=== PATIENT | male | born 1955 | race Caucasian/White ===

== ENCOUNTER 2018-03-11 08:57 | Emergency (ER) | payer OTHER ==
[2018-03-11 09:11] VITALS: BP 157/84
--- NOTE | 2018-03-11 09:18 | UC ---
UC General HPI - HPI Summary HPI Summary: runny nose, post nasal drip and cough with chest congestion since last pm. clear sputum. no fever, sob, cp or wheezing. no hx asthma. takes immune suppressants for arthritis. - History of Current Complaint Chief Complaint: UCRespiratory Stated Complaint: CONGESTION,COUGH Time Seen by Provider: 03/11/18 09:11 Hx Obtained From: Patient Onset/Duration: Gradual Onset Timing: Constant Pain Intensity: 0 Associated Signs & Symptoms: Positive: Cough. Negative: Chest Pain, Fever, SOB , Wheezing - Allergy/Home Medications Allergies/Adverse Reactions: Allergies Allergy/AdvReac Type Severity Reaction Status Date / Time No Known Allergies Allergy Verified 03/11/18 09:10 PMH/Surg Hx/FS Hx/Imm Hx - Additional Past Medical History Additional PMH: Psoriatic arthritis Cardiovascular History: Hypertension - Surgical History Surgical History: Yes Surgery Procedure, Year, and Place: cardiac catheter. tonsilectomy - Social History Alcohol Use: Occasionally Substance Use Type: None Smoking Status (MU): Former Smoker Type: Cigars Amount Used/How Often: none in 1 year Review of Systems All Other Systems Reviewed And Are Negative: Yes Constitutional: Positive: Negative Skin: Positive: Negative Eyes: Positive: Negative ENT: Positive: Nasal Discharge Respiratory: Positive: Cough Cardiovascular: Positive: Negative Gastrointestinal: Positive: Negative Genitourinary: Positive: Negative Motor: Positive: Negative Neurovascular: Positive: Negative Musculoskeletal: Positive: Negative Neurological: Positive: Negative Psychological: Positive: Negative Physical Exam Triage Information Reviewed: Yes Appearance: Well-Appearing Vital Signs: Initial Vital Signs Temp 97.8 F 03/11/18 09:07 Pulse 74 03/11/18 09:07 Resp 17 03/11/18 09:07 BP 157/84 03/11/18 09:07 Pulse Ox 99 03/11/18 09:07 Eyes: Positive: Conjunctiva Clear ENT: Positive: Pharynx normal, Nasal congestion, TMs normal. Negative: Nasal drainage, Sinus tenderness Neck: Positive: Supple, Nontender, No Lymphadenopathy Respiratory: Positive: Lungs clear, Normal breath sounds, No respiratory distress, Other: - Cough is congested Cardiovascular: Positive: RRR, No Murmur Abdomen Description: Positive: Nontender, No Organomegaly, Soft Bowel Sounds: Positive: Present Musculoskeletal: Positive: ROM Intact Neurological: Positive: Alert Psychological: Positive: Age Appropriate Behavior Skin Exam: Normal Course/Dx - Course Course Of Treatment: pt on chronic immune suppression and requires early intervetion with antibiotics thus will tx with zpak. - Differential Dx - Multi-Symptom Differential Diagnoses: Other - uri, sinusitis, bronchitis, pneumonia - Diagnoses Provider Diagnosis: URI (upper respiratory infection), Bronchitis Discharge - Sign-Out/Discharge Documenting (check all that apply): Patient Departure All imaging exams completed and their final reports reviewed: No Studies - Discharge Plan Condition: Stable Disposition: HOME Prescriptions: Azithromycin TAB* [Zithromax TAB (Z-ANGELLA) 250 mg #6 tabs] 2 tab PO .TODAY, THEN 1 DAILY #1 angella Patient Education Materials: Upper Respiratory Infection (DC), Acute Bronchitis (ED) Referrals: Alannah Wilson MD [Primary Care Provider] - 7 Days - Billing Disposition and Condition Condition: STABLE Disposition: Home
== END 2018-03-11 09:25 | disposition home or self-care (01) ==
LOC: UCCORT 08:57
DX: J06.9 Acute upper respiratory infection, unspecified (principal); J40 Bronchitis, not specified as acute or chronic; I10 Essential (primary) hypertension; Z87.891 Personal history of nicotine dependence
CPT/HCPCS: 99212; G0463

== ENCOUNTER 2018-12-25 19:08 | Emergency (ER) | payer OTHER ==
--- OUTSIDE RECORDS SUMMARY | 2018-12-25 19:42 | XMS REPORT | Continuity of Care Document ---
:1955 External Reference #:[id number] Author Name Kadeem Lynn N.P. 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 Onset: 05/26/2011 Rheumatoid arthritis Alannah Wilson M.D. Onset: 05/26/2011 Psoriasis Alannah Wilson M.D. Onset: 05/26/2011 Mixed hyperlipidemia Alannah Wilson M.D. Onset: 05/26/2011 Benign essential hypertension Alannah Wilson M.D. Onset: 05/26/2011 Osteoarthritis Alannah Wilson M.D. Onset: 05/26/2011 Malaise and fatigue Alannah Wilson M.D. Onset: 05/26/2011 Allergic rhinitis Alannah Wilson M.D. Onset: 05/24/2012 Hearing loss Alannah Wilson M.D. Onset: 05/24/2012 Dysfunction of eustachian tube Alannah Wilson M.D. Onset: 05/24/2012 Degeneration of lumbar intervertebral disc Alannah Wilson M.D. Onset: 04/02 Degeneration of thoracic intervertebral disc Alannah Wilson M.D. Onset: Psoriasis with arthropathy Lizzy Harrison FNP Onset: 10/28/2013 Spinal stenosis Lizzy Harrison FNP Onset: 10/28/2013 Basal cell carcinoma of skin Lizzy Harrison FNP Onset: 12/17/2013 Note: FOLLOWED [facility] [place] Essential hypertension Alannah Wilson M.D. 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 Onset: 01/15/2015 Degeneration of lumbosacral intervertebral Alannah Wilson M.D. Onset: 01/15 disc Other specified hearing loss, bilateral Alannah Wilson M.D. Onset: 2014 Other specified disorders of Eustachian tube, Alannah Wilson M.D. Onset: bilateral Social History Type Date Description Comments Sex Unknown ETOH Use Occasionally consumes alcohol Tobacco Use Start: Unknown Patient has never smoked Allergies, Adverse Reactions, Alerts Active Allergies Reaction Severity Comments Date NKDA 05/26/2011 Environmental 02/09/2012 Seasonal 02/09/2012 Medications Active Medications SIG Qnty Indications Ordering Date Provider Ciprofloxacin HCL 1 tab by mouth 20tabs R30.0 Alannah Wilson, 10/29/2018 500mg twice a day M.D. Tablets Womens Daily 1 by mouth every 90tabs E55.9 Alannah Wilson, 09/06/2018 Formula/Folic day M.D. Acid/Calcium/Iron Tablets Toprol XL 1 by mouth every 90tabs I10 Alannah Wilson, 04/24/2018 25mg Tablets ER day M.D. 24HR Clobetasol Propionate apply to affected 60gm L40.9 Alannah Wilson, 2014 arae twice a day M.D. 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 Capsules prescribed by Dr Cox in Rheumatology M51.35 M51.37 Fluticasone 1 spray to each 3Bottles J30.2 Steve, Jose Aamber Marcum, 11/13/2012 Propionate nostril every day M.DAlonzo 50mcg/Act Suspension Desonide Apply Twice Aday To L40.9 Steve Phyllischristine Marcum, 05/24/2012 0.05% Cream Eyelids M.Ye Enbrel every week prescribed L40.9 Steve Phyllischristine Marcum, 06/27/2011 25mg Kit by Rheumatology MMiley M05.40 History Medications Doxycycline Hyclate 1 tab by mouth 60tabs S30.861A [facility] - twice a [facility] M., M.DAlonzo 07/23/2018 100mg Tablets Doxycycline Hyclate 1 tab by mouth S30.861A Steve, [facility] 07/23/2018 - twice a day M., M.D. 07/22/2018 100mg Tablets Doxycycline Hyclate 1 tab by mouth 60tabs S30.861A Steve, [facility] 2018 - twice a day M., M.D. 07/23/2018 100mg Tablets Doxycycline 1 cap by mouth 60caps S30.861A [facility] 07/23/2018 - Monohydrate twice a day M., M.DAlonzo 08/23/2018 100mg Capsules A69.20 Immunizations CPT Code Status Date Vaccine Lot # [id number] Given 04/30/2018 TDaP 74915 Given 01/26/2017 Flu Vaccine [id number] 21977 Given 01/13/2015 Flu Vaccine 55636 Given 12/30/2013 Flu Vaccine [id number] 38974 Given 12/17/2012 Flu Vaccine [id number] 77438 Given 02/17/2011 Flu Vaccine 76172 Given 12/10/2009 Flu Vaccine 93116 Given 01/13/2009 Flu Vaccine 69731 Given 01/03/2008 Flu Vaccine 02588 Given 04/24/2007 Td Preservative Free, 7 Years And Older 55674 Given 02/06/2007 Flu Vaccine 81806 Given 04/16/1998 DT Pediatric Vital Signs Date Vital Result Comment 10/29/2018 4:27pm BP Systolic 138 mmHg BP Diastolic 88 mmHg Height 71 inches 5'11" Weight 228.00 lb BMI (Body Mass Index) 31.8 kg/m2 Heart Rate 64 /min Respiratory Rate 18 /min 09/06/2018 4:16pm BP Systolic 128 mmHg BP Diastolic 76 mmHg Height 71 inches 5'11" Weight 234.00 lb BMI (Body Mass Index) 32.6 kg/m2 Heart Rate 65 /min Respiratory Rate 18 /min Results Test Date Facility Test Result H/L Range Note CBC With Diff 08/23/2018 [facility] WBC 4.4 10*3/uL (4.1-11.0) [address] (607)- - RBC 4.95 10*6/uL (4.60-6.10) HGB 14.9 g/dL (13.5-18.0) HCT 44.6 % (41.0-53.0) MCV 90.1 fL (80.0-95.0) MCH 30.1 pg (27.0-32.0) MCHC 33.4 g/dL (32.0-36.0) RDW 14.4 % (10.5-14.5) PLT 152 10*3/uL (150-450) MPV 8.7 fL (7.1-10.7) Neut % 47.5 % (35.0-75.0) Lymph % 36.4 % (16.0-52.0) [place] % 11.0 % High (0.0-8.0) Eos % 4.2 % (0.0-5.0) Baso % 0.9 % (0.0-4.0) Neut # 2.1 10*3/uL (1.8-7.7) Lymph # 1.6 10*3/uL (1.2-4.8) [place] # 0.5 10*3/uL (0.0-0.8) Eos # 0.2 10*3/uL (0.0-0.5) Baso # 0.0 10*3/uL (0.0-0.2) CMP 08/23/2018 [facility] Sodium 142 mmol/L (136-145) [address] (607)- - Potassium 4.2 mmol/L (3.6-5.2) Chloride 109 mmol/L High (100-108) Co2 29 mmol/L (22-31) Anion Gap 4 mmol/L Low (7-16) Urea Nitrogen 22 mg/dL (7-24) Creatinine 0.98 mg/dL (0.80-1.30) BUN/Creat Ratio 22.4 RATIO High (10.0-20.0) Glucose 86 mg/dL (70-99) Calcium 8.6 mg/dL (8.4-10.2) Total Protein 7.0 g/dL (6.4-8.2) Albumin 4.1 g/dL (3.2-4.5) Globulin 2.9 g/dL (2.7-4.3) Alb/Glob Ratio 1.4 RATIO Alkaline Phosphatase 42 U/L Low (45-117) Bilirubin,Total 1.2 mg/dL High (0.0-1.0) Ast (Sgot) 24 U/L (11-39) Alt (SGPT) 29 U/L (12-78) GFR >60 ml/min/1.73m2 (>59) GFR ( Amer) >60 ml/min/1.73m2 (>59) GFR Interpretation <SEE NOTE> 1 Lipid Extended Panel 08/23/2018 [facility] Appearance CLEAR (Clear) [address] (496)- - Cholesterol @ 211 mg/dL High (0-200) Triglyceride @ 188 mg/dL (30-200) HDL Cholesterol @ 42 mg/dL (>40) 2 Chol/HDL Ratio 5.0 RATIO 3 Direct LDL @ 130 mg/dL High (<130) 4 VLDL (Calc) 39 mg/dL High (0-30) Laboratory 08/23/2018 [facility] TSH,Ultrasensitive @ 1.330 (0.360- 4.170) test finding [address] mIU/L (607)- - Esr 7 mm/h (0-20) 25 Hydroxy Vit D @ 21 ng/mL Low (31-100) 5 Lyme Disease 08/23/2018 [facility] Lyme Igm/Igg AB NEGATIVE (Neg) 6 Antibodies Igg/Igm [address] @ (335)- - 1 NORMAL KIDNEY FUNCTION OR MILD DISEASE - GFR >OR= 60 CHRONIC KIDNEY DISEASE - GFR 15 - 59 RENAL FAILURE - GFR <15 Est. GFR calculation based on the MDRD study equation, which assumes a steady state for creatinine. Est. GFR should not be used for medication dosing. 2 PER NCEP ATP III GUIDELINES: RESULTS LOWER THAN 40 MG/DL ARE SUGGESTIVE OF INCREASED RISK FOR CORONARY ARTERY DISEASE. RESULTS > OR = TO 60 MG/DL ARE CONSIDERED A NEGATIVE RISK FACTOR. 3 INTERPRETATION OF CHOL-HDL RATIO CHD RISK FEMALE MALE VERY HIGH >8.3 >14.3 HIGH 5.6- 8.3 6.7- 14.3 AVERAGE 3.7- 5.6 4.0- 6.7 BELOW AVERAGE 2.5- 3.7 2.7- 4.0 PROTECTED <2.5 <2.7 4 PER NCEP ATP III GUIDELINES: OPTIMAL < 100 NEAR OPTIMAL 100 - 129 BORDERLINE HIGH 130 - 159 HIGH 160 - 189 VERY HIGH > 189 5 A REVIEW OF THE LITERATURE SUGGESTS THE FOLLOWING RANGES FOR THE CLASSIFICATION OF 25-OH VITAMIN D STATUS: VITAMIN D STATUS 25-OH VITAMIN D DEFICIENCY <20 NG/ML INSUFFICIENCY 20-30 NG/ML SUFFICIENCY 31 - 100 NG/ML TOXICITY > 100 NG/ML A PEDIATRIC REFERENCE RANGE HAS NOT BEEN ESTABLISHED USING THIS METHOD. 6 A Negative serologic test for Lyme Disease indicates no serologic evidence of infection with B burgdorferi at the time this specimen was collected. A repeat specimen should be collected in 2 to 4 weeks if clinically indicated. Procedures Date Code Description Status 09/06/2018 26855 Visual Screening Test Completed 09/06/2018 84425 EKG Completed 09/06/2018 01351 Audiometry, [place], Screening Completed 07/27/2016 [id number] Colonoscopy Completed 03/13/2005 69000400 Colonoscopy Completed Medical Devices Description No Information Available Encounters Type Date Location Provider Dx Diagnosis Office Visit 10/29/2018 [facility] Kadeem Lynn, I10 Essential ( primary) 4:30p N.P. hypertension E78.2 Mixed hyperlipidemia M05.40 Rheumatoid myopathy with rheumatoid arthritis of [facility] site M51.37 Other intervertebral disc degeneration, lumbosacral region M51.35 Other intervertebral disc degeneration, thoracolumbar region M15.9 Polyosteoarthritis, unspecified L40.9 Psoriasis, unspecified R53.81 Other malaise H91.8x3 Other specified hearing loss, bilateral H69.83 Other specified disorders of Eustachian tube, bilateral F41.9 Anxiety disorder, unspecified J30.2 Other seasonal allergic rhinitis L20.9 Atopic dermatitis, unspecified N40.1 Benign prostatic hyperplasia with lower urinary tract symp I45.10 Unspecified right bundle-branch block H92.02 Otalgia, left ear E55.9 Vitamin D deficiency, unspecified R05 Cough S30.861D Insect bite (nonvenomous) of abdominal wall, subs encntr A69.20 Lyme disease, unspecified M54.5 Low back pain R30.0 Dysuria N21.8 Other lower urinary tract calculus Office Visit 09/06/2018 4:15p [facility] Alannah Wilson ( primary) Chuck Marcum hypertension E78.2 Mixed hyperlipidemia M05.40 Rheumatoid myopathy with rheumatoid arthritis of [facility] site M51.37 Other intervertebral disc degeneration, lumbosacral region M51.35 Other intervertebral disc degeneration, thoracolumbar region M15.9 Polyosteoarthritis, unspecified L40.9 Psoriasis, unspecified R53.81 Other malaise H91.8x3 Other specified hearing loss, bilateral H69.83 Other specified disorders of Eustachian tube, bilateral F41.9 Anxiety disorder, unspecified J30.2 Other seasonal allergic rhinitis L20.9 Atopic dermatitis, unspecified N40.1 Benign prostatic hyperplasia with lower urinary tract symp I45.10 Unspecified right bundle-branch block H92.02 Otalgia, left ear E55.9 Vitamin D deficiency, unspecified R05 Cough S30.861D Insect bite (nonvenomous) of abdominal wall, subs encntr A69.20 Lyme disease, unspecified Z00.01 Encounter for general adult medical exam w abnormal findings Office Visit 08/23/2018 8:30a [facility] Alannah Wilson I10 Essential ( primary) Chuck Marcum hypertension E78.2 Mixed hyperlipidemia M05.40 Rheumatoid myopathy with rheumatoid arthritis of [facility] site M51.37 Other intervertebral disc degeneration, lumbosacral region M51.35 Other intervertebral disc degeneration, thoracolumbar region M15.9 Polyosteoarthritis, unspecified L40.9 Psoriasis, unspecified R53.81 Other malaise H91.8x3 Other specified hearing loss, bilateral H69.83 Other specified disorders of Eustachian tube, bilateral F41.9 Anxiety disorder, unspecified J30.2 Other seasonal allergic rhinitis L20.9 Atopic dermatitis, unspecified N40.1 Benign prostatic hyperplasia with lower urinary tract symp I45.10 Unspecified right bundle-branch block H92.02 Otalgia, left ear E55.9 Vitamin D deficiency, unspecified R05 Cough S30.861D Insect bite (nonvenomous) of abdominal wall, subs encntr A69.20 Lyme disease, unspecified Office Visit 07/23/2018 3:00p [facility] Kadeem Lynn I10 Essential (primary) N.P. hypertension E78.2 Mixed hyperlipidemia M05.40 [facility]37 Other intervertebral disc degeneration, lumbosacral region M51.35 Other intervertebral disc degeneration, thoracolumbar region M15.9 Polyosteoarthritis, unspecified L40.9 Psoriasis, unspecified R53.81 Other malaise H91.8x3 Other specified hearing loss, bilateral H69.83 Other specified disorders of Eustachian tube, bilateral F41.9 Anxiety disorder, unspecified J30.2 Other seasonal allergic rhinitis L20.9 Atopic dermatitis, unspecified N40.1 Benign prostatic hyperplasia with lower urinary tract symp I45.10 Unspecified right bundle-branch block H92.02 Otalgia, left ear E55.9 Vitamin D deficiency, unspecified R05 Cough S30.861A Insect bite (nonvenomous) of abdominal wall, init encntr Office Visit 05/22/2018 4:00p [facility] Alannah Wilson I10 Essential ( primary) Chuck Marcum hypertension E78.2 Mixed hyperlipidemia M05.40 Rheumatoid myopathy with rheumatoid arthritis of unsp site M51.37 Other intervertebral disc degeneration, lumbosacral region M51.35 Other intervertebral disc degeneration, thoracolumbar region M15.9 Polyosteoarthritis, unspecified L40.9 Psoriasis, unspecified R53.81 Other malaise H91.8x3 Other specified hearing loss, bilateral H69.83 Other specified disorders of Eustachian tube, bilateral F41.9 Anxiety disorder, unspecified J30.2 Other seasonal allergic rhinitis L20.9 Atopic dermatitis, unspecified N40.1 Benign prostatic hyperplasia with lower urinary tract symp I45.10 Unspecified right bundle-branch block H92.02 Otalgia, left ear E55.9 Vitamin D deficiency, unspecified R05 Cough Assessments Date Code Description Provider 10/29/2018 I10 Essential (primary) hypertension Kadeem Lynn, N.P. 10/29/2018 E78.2 Mixed hyperlipidemia Kadeem Lynn, N.P. 10/29/2018 M05.40 Rheumatoid myopathy with rheumatoid Kadeem Lynn, N.P. arthritis of unspecified 10/29/2018 M51.37 Other intervertebral disc degeneration, Kadeem Lynn, N.P. lumbosacral region 10/29/2018 M51.35 Other intervertebral disc degeneration, Kadeem Lynn, N.P. thoracolumbar region 10/29/2018 M15.9 Polyosteoarthritis, unspecified Kadeem Lynn, N.P. 10/29/2018 L40.9 Psoriasis, unspecified Kadeem Lynn, N.P. 10/29/2018 R53.81 Other malaise Kadeem Lynn, N.P. 10/29/2018 H91.8x3 Other specified hearing loss, bilateral Kadeem Lynn, N.P. 10/29/2018 H69.83 Other specified disorders of Eustachian Kadeem Lynn, N.P. tube, bilateral 10/29/2018 F41.9 Anxiety disorder, unspecified Kadeem Lynn, N.P. 10/29/2018 J30.2 Other seasonal allergic rhinitis Kadeem Lynn, N.P. 10/29/2018 L20.9 Atopic dermatitis, unspecified Kadeem Lynn, N.P. 10/29/2018 N40.1 Benign prostatic hyperplasia with lower Kadeem Lynn, N.P. urinary tract sympto 10/29/2018 I45.10 Unspecified right bundle-branch block Kadeem Lynn, N.P. 10/29/2018 H92.02 Otalgia, left ear Kadeem Lynn, N.P. 10/29/2018 E55.9 Vitamin D deficiency, unspecified Kadeem Lynn, N.P. 10/29/2018 R05 Cough Kadeem Lynn, N.P. 10/29/2018 S30.861D Insect bite (nonvenomous) of abdominal Kadeem Lynn N.P. wall, subsequent enco 10/29/2018 A69.20 Lyme disease, unspecified Kadeem Lynn N.P. 10/29/2018 M54.5 Low back pain Kadeem Lynn N.P. 10/29/2018 R30.0 Dysuria Kadeem Lynn N.P. 10/29/2018 N21.8 Other lower urinary tract calculus Kadeem Lynn, N.P. 09/06/2018 I10 Essential (primary) hypertension Alannah Wilson M.D. 09/06/2018 E78.2 Mixed hyperlipidemia Alannah Wilson M.D. 09/06/2018 M05.40 Rheumatoid myopathy with rheumatoid Alannah Wilson M.D. arthritis of unspecified 09/06/2018 M51.37 Other intervertebral disc degeneration, Alannah Wilson M.D. lumbosacral region 09/06/2018 M51.35 Other intervertebral disc degeneration, Alannah Wilson M.D. thoracolumbar region 09/06/2018 M15.9 Polyosteoarthritis, unspecified Alannah Wilson M.D. 09/06/2018 L40.9 Psoriasis, unspecified Alannah Wilson M.D. 09/06/2018 R53.81 Other malaise Alannah Wilson M.D. 09/06/2018 H91.8x3 Other specified hearing loss, bilateral Alannah Wilson M.D. 09/06/2018 H69.83 Other specified disorders of Eustachian Alannah Wilson M.D. tube, bilateral 09/06/2018 F41.9 Anxiety disorder, unspecified Alannah Wilson M.D. 09/06/2018 J30.2 Other seasonal allergic rhinitis Alannah Wilson M.D. 09/06/2018 L20.9 Atopic dermatitis, unspecified Alannah Wilson M.D. 09/06/2018 N40.1 Benign prostatic hyperplasia with lower Alannah Wilson M.D. urinary tract sympto 09/06/2018 I45.10 Unspecified right bundle-branch block Alannah Wilson M.D. 09/06/2018 H92.02 Otalgia, left ear Alannah Wilson M.D. 09/06/2018 E55.9 Vitamin D deficiency, unspecified Alannah Wilson M.D. 09/06/2018 R05 Cough Alannah Wilson M.D. 09/06/2018 S30.861D Insect bite (nonvenomous) of abdominal Alannah Wilson M.D. wall, subsequent enco 09/06/2018 A69.20 Lyme disease, unspecified Alannah Wilson M.D. 09/06/2018 Z00.01 Encounter for general adult medical Alannah Wilson M.D. examination with abnorma 08/23/2018 I10 Essential (primary) hypertension Alannah Wilson M.D. 08/23/2018 E78.2 Mixed hyperlipidemia Alannah Wilson M.D. 08/23/2018 M05.40 Rheumatoid myopathy with rheumatoid Alannah Wilson M.D. arthritis of unspecified 08/23/2018 M51.37 Other intervertebral disc degeneration, Alannah Wilson M.D. lumbosacral region 08/23/2018 M51.35 Other intervertebral disc degeneration, Alannah Wilson M.D. thoracolumbar region 08/23/2018 M15.9 Polyosteoarthritis, unspecified Alannah Wilson M.D. 08/23/2018 L40.9 Psoriasis, unspecified Alannah Wilson M.D. 08/23/2018 R53.81 Other malaise Alannah Wilson M.D. 08/23/2018 H91.8x3 Other specified hearing loss, bilateral Alannah Wilson M.D. 08/23/2018 H69.83 Other specified disorders of Eustachian Alannah Wilson M.D. tube, bilateral 08/23/2018 F41.9 Anxiety disorder, unspecified Alannah Wilson M.D. 08/23/2018 J30.2 Other seasonal allergic rhinitis Alannah Wilson M.D. 08/23/2018 L20.9 Atopic dermatitis, unspecified Alannah Wilson M.D. 08/23/2018 N40.1 Benign prostatic hyperplasia with lower Alannah Wilson M.D. urinary tract sympto 08/23/2018 I45.10 Unspecified right bundle-branch block Alannah Wilson M.D. 08/23/2018 H92.02 Otalgia, left ear Alannah Wilson M.D. 08/23/2018 E55.9 Vitamin D deficiency, unspecified Alannah Wilson M.D. 08/23/2018 R05 Cough Alannah Wilson M.D. 08/23/2018 S30.861D Insect bite (nonvenomous) of abdominal Alannah Wilson M.D. wall, subsequent enco 08/23/2018 A69.20 Lyme disease, unspecified Alannah Wilson M.D. 07/23/2018 I10 Essential (primary) hypertension Kadeem Lynn N.PAlonzo 07/23/2018 E78.2 Mixed hyperlipidemia Kadeem Lynn N.PAlonzo 07/23/2018 M05.40 Rheumatoid myopathy with rheumatoid Kadeem Lynn N.PAlonzo arthritis of unspecified 07/23/2018 M51.37 Other intervertebral disc degeneration, Kadeem Lynn N.P. lumbosacral region 07/23/2018 M51.35 Other intervertebral disc degeneration, Kadeem Lynn N.PAlonzo thoracolumbar region 07/23/2018 M15.9 Polyosteoarthritis, unspecified Kadeem Lynn N.PAlonzo 07/23/2018 L40.9 Psoriasis, unspecified Kadeem Lynn N.PAlonzo 07/23/2018 R53.81 Other malaise Kadeem Lynn, N.P. 07/23/2018 H91.8x3 Other specified hearing loss, bilateral Kadeem Lynn, N.P. 07/23/2018 H69.83 Other specified disorders of Eustachian Kadeem Lynn, N.P. tube, bilateral 07/23/2018 F41.9 Anxiety disorder, unspecified Kadeem Lynn, N.P. 07/23/2018 J30.2 Other seasonal allergic rhinitis Kadeem Lynn, N.P. 07/23/2018 L20.9 Atopic dermatitis, unspecified Kadeem Lynn, N.P. 07/23/2018 N40.1 Benign prostatic hyperplasia with lower Kadeem Lynn, N.P. urinary tract sympto 07/23/2018 I45.10 Unspecified right bundle-branch block Kadeem Lynn, N.P. 07/23/2018 H92.02 Otalgia, left ear Kadeem Lynn, N.P. 07/23/2018 E55.9 Vitamin D deficiency, unspecified Kadeem Lynn, N.P. 07/23/2018 R05 Cough Kadeem Lynn, N.P. 07/23/2018 S30.861A Insect bite (nonvenomous) of abdominal Kadeem Lynn N.P. wall, initial encount 05/22/2018 I10 Essential (primary) hypertension Alannah Wilson M.D. 05/22/2018 E78.2 Mixed hyperlipidemia Alannah Wilson M.D. 05/22/2018 M05.40 Rheumatoid myopathy with rheumatoid Alannah Wilson M.D. arthritis of unspecified 05/22/2018 M51.37 Other intervertebral disc degeneration, Alannah Wilson M.D. lumbosacral region 05/22/2018 M51.35 Other intervertebral disc degeneration, Alannah Wilson M.D. thoracolumbar region 05/22/2018 M15.9 Polyosteoarthritis, unspecified Alannah Wilson M.D. 05/22/2018 L40.9 Psoriasis, unspecified Alannah Wilson M.D. 05/22/2018 R53.81 Other malaise Alannah Wilson M.D. 05/22/2018 H91.8x3 Other specified hearing loss, bilateral Alannah Wilson M.D. 05/22/2018 H69.83 Other specified disorders of Eustachian Alannah Wilson M.D. tube, bilateral 05/22/2018 F41.9 Anxiety disorder, unspecified Alannah Wilson M.D. 05/22/2018 J30.2 Other seasonal allergic rhinitis Alannah Wilson M.D. 05/22/2018 L20.9 Atopic dermatitis, unspecified Alannah Wilson M.D. 05/22/2018 N40.1 Benign prostatic hyperplasia with lower Alannah Wilson M.D. urinary tract sympto 05/22/2018 I45.10 Unspecified right bundle-branch block Alannah Wilson M.D. 05/22/2018 H92.02 Otalgia, left ear Alannah Wilson M.D. 05/22/2018 E55.9 Vitamin D deficiency, unspecified Alannah Wilson M.D. 05/22/2018 R05 Cough Alannah Wilson M.D. Plan of Treatment No Information Available Functional Status Functional Condition Comment Date Status .None Active Mental Status Description No Information Available Referrals Description No Information Available
[2018-12-25 19:56] VITALS: BP 135/89
--- NOTE | 2018-12-25 20:29 | UC ---
Lower Extremity/Ankle HPI - HPI Summary HPI Summary: 63 yo with right foot pain. Sliver from deck in right foot x months, followed by possible removal by Dr. Wilson. Now has progressive pain and build up of callus, pain with weight bearing. Hx of psoriatic arthritis. Note low grade temperature elevation present today. Has normal blood counts per report, done every 6 weeks due to use of Enbrel. - History of Current Complaint Chief Complaint: UCLowerExtremity Stated Complaint: RT FOOT COMPLAINT Time Seen by Provider: 12/25/18 20:20 Hx Obtained From: Patient Onset/Duration: Gradual Onset, Lasting Weeks Pain Intensity: 2 Aggravating Factor(s): Standing, Ambulation Alleviating Factor(s): Rest - Risk Factors Gout Risk Factors: Negative DVT Risk Factors: Negative - Allergies/Home Medications Allergies/Adverse Reactions: Allergies Allergy/AdvReac Type Severity Reaction Status Date / Time weeds Allergy Eyes Uncoded 12/25/18 19:44 Itchy/Swollen/Red/Watery PMH/Surg Hx/FS Hx/Imm Hx - Additional Past Medical History Additional PMH: Psoriatic arthritis. Cardiovascular History: Hypertension - takes metoprolol - Surgical History Surgical History: Yes Surgery Procedure, Year, and Place: cardiac catheter. tonsilectomy. R bicep detachment repair - Family History Known Family History: Positive: Non-Contributory - Social History Occupation: Employed Full-time Lives: With Family Alcohol Use: Occasionally Substance Use Type: None Smoking Status (MU): Never Smoked Tobacco Type: Cigars Amount Used/How Often: none in 1 year - Immunization History Most Recent Tetanus Shot: 04/29/18 Hx Tetanus, Diphtheria Vaccination: No Review of Systems All Other Systems Reviewed And Are Negative: Yes Constitutional: Positive: Fever - no symptoms of systemic illness. ENT: Negative: Sore Throat Respiratory: Negative: Cough Motor: Positive: Negative Neurovascular: Positive: Negative Psychological: Positive: Negative Is Patient Immunocompromised?: No Physical Exam Triage Information Reviewed: Yes Appearance: Well-Appearing, No Pain Distress, Obese Vital Signs: Initial Vital Signs Temp 100.3 F 12/25/18 19:47 Pulse 68 12/25/18 19:47 Resp 20 12/25/18 19:47 BP 135/89 12/25/18 19:47 Pulse Ox 97 12/25/18 19:47 ENT: Positive: Normal ENT inspection Respiratory: Positive: Lungs clear Cardiovascular: Positive: RRR, No Murmur Neurological Exam: Normal Neurological: Positive: Alert Skin Exam: Other - over right first metatarsal, build up of callus. Area cleansed with betadine, pared callus with # 12 blade, teased out tract about 2 mm depth with foreign body forceps. With light pressure both sides of tract, expressed tiny amount of purulent discharge and thin 4 mm sliver. Time out procedure was done. Lower Extremity Course/Dx - Course Course Of Treatment: Single dose of cpehlaexin given, will soak foot once home, follow up with PMD if pain continues. - Differential Dx/Diagnosis Provider Diagnosis: Foreign body in right foot Discharge ED - Sign-Out/Discharge Documenting (check all that apply): Patient Departure All imaging exams completed and their final reports reviewed: No Studies - Discharge Plan Condition: Good Disposition: HOME Patient Education Materials: Soft Tissue Foreign Body (ED) Referrals: Alannah Wilson MD [Primary Care Provider] - Additional Instructions: Please soak your right foot in hot water and salt or Epson salts tonight and tomorrow morning. Apply thin layer of topical antibiotic an a dressing. You had a single dose of cephalexin tonight to prevent spread of infection from the procedure. If you have persistent fever, please follow up with your primary care doctor. - Billing Disposition and Condition Condition: GOOD Disposition: Home
[2018-12-25] MEDS ORDERED: Cephalexin CAP* 500 MG PO ONE (20:51)
== END 2018-12-25 21:08 | disposition home or self-care (01) ==
LOC: UCCORT 19:39
DX: S90.851A Superficial foreign body, right foot, initial encounter (principal); L40.50 Arthropathic psoriasis, unspecified; I10 Essential (primary) hypertension; E66.9 Obesity, unspecified; Z91.09 Other allergy status, other than to drugs and biological substances; Z79.899 Other long term (current) drug therapy; W45.8XXA Other foreign body or object entering through skin, initial encounter; Y92.9 Unspecified place or not applicable
CPT/HCPCS: 28190; 99212; A9270-GY; G0463